=== PATIENT | female | born 1975 | race Caucasian/White ===

== ENCOUNTER 2016-06-09 10:59 | Day surgery (SDC) | payer MEDICAID | END 2016-06-09 11:00 | disposition home or self-care (01) | LOC: OPU 10:59 → EDSTATUS 11:30 | PROVIDERS: ATTEND Otolaryngology | DX: D34 Benign neoplasm of thyroid gland (principal); E10.9 Type 1 diabetes mellitus without complications; Z53.8 Procedure and treatment not carried out for other reasons ==

== ENCOUNTER 2016-06-13 11:37 | Day surgery (SDC) | payer MEDICAID ==
[2016-06-13] MEDS ORDERED: TYLENOL ONE (15:12)
[2016-06-13] MEDS ORDERED: TYLENOL PO ONE (15:15)
--- NOTE | 2016-06-13 15:50 | Ultrasound Report ---
Bilateral ultrasound guided thyroid biopsies: History: Right neck. Referring physician feels no nodules. Imaging of both lobes is obtained. The right lobe measures approximately 14 x 23 x 58 mm and the left measures 19 x 25 x 59 mm. Numerous nodules are scattered throughout both lobes. Most of the nodules are inhomogeneous, mildly hypoechoic to moderately hypoechoic and well-circumscribed. Several contain some degree of calcification mostly chunky. In the superior right lobe there is a hypoechoic nodule measuring approximately 19 mm in maximum size. In its periphery there is a solid appearing nodule and an area of peripheral chunky calcification. In the left upper lobe is a well circumscribed hypoechoic nodule measuring approximately 15 mm with an eccentric area of nodularity. There may be a small calcification. These nodules were chosen for sampling. Local anesthesia was used for both lesions. Under ultrasound guidance samples were obtained with a 25-gauge needle using aspiration technique followed by biopsies with Rotex needles. The attending pathologist indicated adequate sampling. The patient initially demonstrated mild discomfort only left which seemed to increase well after the biopsies. She is being followed in the [facility].
[2016-06-13 16:29] VITALS: BP 123/61
--- NOTE | 2016-06-13 16:40 | History and Physical Report ---
History of Present Illness Date of examination: 06/13/16 Chief complaint: doctor feel nodules Medications and Allergies Allergies Allergy/AdvReac Type Severity Reaction Status Date / Time No Known Allergies Allergy Unverified 05/25/14 15:06 Home Medications Medication Instructions Recorded Confirmed Last Taken Type RX: No Known Home Medications [No 06/13/16 06/13/16 Unknown History Reported Home Medications] Exam Vital Signs Temp Pulse Resp BP Pulse Ox 98.3 F 70 18 119/54 96 06/13/16 11:58 06/13/16 11:58 06/13/16 11:58 06/13/16 11:58 06/13/16 11:58
--- NOTE | 2016-06-13 16:44 | Procedure Note ---
Date of procedure: 06/13/16 Pre-op diagnosis: thyroid nodules Post-op diagnosis: same Procedure: u/s guided maria teresa. thyroid asp/bx Anesthesia: local Surgeon: JEANETTE GR Estimated blood loss: none Pathology: list (thyroid asp/bx) Specimen disposition: to lab Condition: other (stable with soreness on left) Disposition: observation (d/c with lt soreness; swallows and no distress)
== END 2016-06-13 16:30 | disposition home or self-care (01) ==
LOC: OPU 11:37
PROVIDERS: ATTEND Otolaryngology
DX: E04.1 Nontoxic single thyroid nodule (principal)
CPT/HCPCS: 60100; 76942; 88112; 88172; 88173; 88305